=== PATIENT | female | born 1990 | race Caucasian/White ===

== ENCOUNTER → 2018-09-16 15:00 | Outpatient (CLI) | payer SELFPAY ==
[2015-12-19 07:31] VITALS: BMI 35.6
[2018-09-17 12:47] LABS: Chlamydia Trachomatis by PCR Negative (Negative); Neisserai gonorrhoeae by PCR Negative (Negative); Probe Check PASS; Sample Adequacy Control PASS; Specimen Processing Control PASS
[2018-09-19 13:15] LABS: HPV Reflexed? NOT INDICATED
--- OUTSIDE RECORDS SUMMARY | 2018-12-19 12:39 | XMS RPT_ITS ---
:1990 Author Organization OHIP Care Team Providers Name Role Phone TAYLOR DOTY Admitting Unavailable TAYLOR DOTY Attending Unavailable TAYLOR DOTY Primary Care Unavailable Taylor Doty Attending Unavailable PROBLEMS PROBLEMS DATE TYPE CONDITION / CODE ATTENDING STATUS SOURCE 09/17/2018 Unknown Z12.4 - Encounter Taylor Doty for screening for Community malignant neoplasm Hospital of cervix / Repository Z12.4(ICD-10) 09/17/2018 Unknown Z11.3 - Encounter Taylor Doty for screening for Community infections with a Hospital predominantly Repository sexual mode of transmission / Z11.3(ICD-10) PROCEDURES PROCEDURES No Procedure Records FoundRESULTS RESULTS CBC Collected: 09/16/2018 Status: F Source: JULIETAELIANE WHITMANJOY 7:11 PM [facility] REPOSITORY TYPE CODE TESTS RESULT OUT OF RANGE REFERENCE UNITS LAB CBC(LOINC) CBC Result Comment: CBC-COMPLETE BLOOD COUNT LAB WBC(LOINC) 4.5 - 10.8 x 10EE3/UL WBC 8.6 LAB RBC(LOINC) 4.10 - x 10EE6/UL 5.30 RBC Low 4.05 LAB HEMOGLOBIN(LOINC) 12.0 - g/dl 16.0 HEMOGLOBIN 12.2 LAB HEMATOCRIT(LOINC) 34.0 - % 46.0 HEMATOCRIT 35.5 LAB MCV(LOINC) 80 - 99 fl MCV 88 LAB MCH(LOINC) 27 - 33 pg MCH 30 LAB MCHC(LOINC) 32 - 36 X10 3 MCHC 34 LAB RDW/CV(LOINC) 12.0 - % 15.6 RDW/CV 14.3 LAB PLATELET(LOINC) 150 - 450 x10EE3/UL PLATELET 255 LAB MPV(LOINC) 6.6 - 10.5 fl MPV 9.8 Result Comment: AUTOMATED DIFFERENTIAL LAB NEUT %(LOINC) 46.0 - 76.0 % NEUT % 69.1 LAB LYMPH %(LOINC) 20.0 - 45.0 % LYMPH % 23.4 LAB MONOS %(LOINC) 0.0 - 10.0 % MONOS % 6.1 LAB EO %(LOINC) 0.0 - 7.0 % EO % 0.9 LAB BASO %(LOINC) 0.0 - 2.0 % BASO % 0.5 LAB Lymph #(LOINC) 0.80 - 2.80 x10EE3/U L Lymph # 2.00 LAB Neut #(LOINC) 1.50 - 7.10 x10EE3/U L Neut # 5.90 LAB [place] #(LOINC) 0.20 - 1.00 x10EE3/U L [place] # 0.50 LAB EO #(LOINC) 0.00 - 0.50 x10EE3/U L EO # 0.10 LAB Baso #(LOINC) 0.00 - 0.10 x10EE3/U L Baso # 0.00 LAB MANUAL DIFF(LOINC) MANUAL DIFF N/A LAB MORPHOLOGY(LOINC ) MORPHOLOGY N/A Result Comment: {CD] Performed By: #### [id number] #### [place] [id number] BB TYPE & SCREEN Collected: 09/16/2018 Status: F Source: [facility] 7:11 PM [facility] REPOSITORY TYPE CODE TESTS RESULT OUT OF REFERENCE UNITS RANGE LAB BB TYPE & SCREEN(LOIN C) BB TYPE & SCREEN Result Comment: TYPE, Rh, AND SCREEN LAB ABO(LOINC) ABO A LAB Rh(LOINC) Rh NEG LAB ANTIBODY SCR(INC) ANTIBODY negative SCR Performed By: #### [id number] #### [place] [id number] TSH Collected: 09/16/2018 Status: F Source: [facility] 7:11 [facility] REPOSITORY TYPE CODE TESTS RESULT OUT OF RANGE REFERENCE UNITS LAB TSH(LOINC) 0.34 - 5.60 uIU/ml High TSH 5.97 Performed By: #### [id number] #### [facility],[address] [place] [address] HEPATITIS C AB IA Collected: 09/16/2018 Status: F Source: JULIETA BETANCOURT W/CONFIRM [CCL] 7:11 PM [facility] REPOSITORY TYPE CODE TESTS RESULT OUT OF REFERENCE UNITS RANGE LAB HEPATITIS C AB IA W/CONFIRM [CCL](LOINC) HEPATITIS C AB IA W/CONFIRM [CCL] Result Comment: _HEPATITIS C AB IA W/CONFIRM [CCL]_ REFER TO SCANNED REPORT LAB REFLEX HCQPCR?(LOINC) REFLEX HCQPCR? NO Performed By: #### [id number] #### [place] [id number] POMERENE 3 [CCL] Collected: 09/16/2018 Status: F Source: JULIETA BETANCOURT 7:11 PM [facility] REPOSITORY TYPE CODE TESTS RESULT OUT OF REFERENCE UNITS RANGE LAB POMERENE 3 [CCL](LOINC) POMERENE 3 [CCL] Result Comment: _POMERENE 3 [CCL]_ REFER TO SCANNED REPORT Performed By: #### [id number] #### [address] [address] CT/NG [facility] BY PCR Collected: 09/16/2018 Status: F Source: [facility] 3:00 PM REPOSITORY TYPE CODE TESTS RESULT OUT OF RANGE REFERENCE UNITS LAB L8200.2100 Negative Normal Chlam Negative Trac PCR LAB L8200.2200 Negative Normal NG by Negative PCR Performed By: #### L8200.2000 #### [facility] [address] [place], [place], [address] PAP IG W/REFLEX HR Collected: 09/16/2018 Status: F Source: [facility] HPV APTIMA 3:00 PM REPOSITORY Order Comment: CYTOLOGY INFORMATION: - CLINICAL INFORMATION: - DATE LMP/MENOPAUSE: 06/13/18 LMP - COLLECTION VIAL: Thin Prep Vial - DIGITAL SALES ASSISTANT SOURCE: CERVICAL/ENDOCERVICAL - COLLECTION TECHNIQUE: BRUSH/SPATULA Specimen Comment: [id number] Specimen Comment: Source.............Cervix Specimen Comment: LMP / Prev Treat...[id number]=[id number] Specimen Comment: Other.............. Specimen Comment: No. of containers..01 ThinPrep Vial TYPE CODE TESTS RESULT OUT OF RANGE REFERENCE UNITS LAB L7400.0800 . Normal DIAGN Comment Result Comment: NEGATIVE FOR INTRAEPITHELIAL LESION AND MALIGNANCY. LAB L7400.0900 . Normal ADEQ Comment Result Comment: Satisfactory for evaluation. Endocervical and/or squamous metaplastic cells (endocervical component) are present. LAB L7400.1400 . Normal PERFORM Comment Result Comment: Mona Gonzalez, Tile Grinder (ASCP) LAB L7400.2575 . Normal TEST METHOD Comment Result Comment: This liquid based ThinPrep(R) pap test was screened with the use of an image guided system. LAB L7400.2600 . Normal . COMM LAB L7400.2700 . Normal PAPSMR Comment Result Comment: The Pap smear is a screening test designed to aid in the detection of premalignant and malignant conditions of the uterine cervix. It is not a diagnostic procedure and should not be used as the sole means of detecting cervical cancer. Both false-positive and false-negative reports do occur. LAB L7400.2800 . Normal HPV RFLX Comment Result Comment: The HPV DNA reflex criteria were not met with this specimen result therefore, no HPV testing was performed. Performed at: [address] [id number] Electrical Linesworker: Keeley Gonzalez MD, Phone: [phone] Performed By: #### L7400.0357 #### [facility] (refer to report for specific site) refer to report for address and phone number URINALYSIS Collected: 01/27/2018 Status: F Source: JULIETA BETANCOURT 4:30 PM [facility] REPOSITORY TYPE CODE TESTS RESULT OUT OF REFERENCE UNITS RANGE LAB URINALYSIS (LOINC) URINALYSIS Result Comment: URINALYSIS LAB Specimen Type(LOINC) Specimen UNSPECIFIED Type LAB Color(LOINC) NORMAL: YELLOW Color p.yel LAB Clarity(LOINC) NORMAL: CLEAR Clarity CLEAR LAB ph(LOINC) NORMAL: 5.0-8.0 ph 6 LAB Protein(LOINC) NORMAL: NEGATIVE Protein NEG LAB Glucose(LOINC) NORMAL: NORMAL Glucose NORM LAB Ketone(LOINC) NORMAL: NEGATIVE Ketone NEG LAB Bilirubin(LOINC) NORMAL: NEGATIVE Bilirubin NEG LAB Blood(LOINC) NORMAL: NEGATIVE Blood NEG LAB Urobilinog(LOINC) NORMAL: NORMAL Urobilinog NORM LAB Sp [place](LOINC) NORMAL: 1.010-1.030 Sp [place] 1.010 LAB Nitrite(LOINC) NORMAL: NEGATIVE Nitrite NEG LAB Leukocytes(LOINC) NORMAL: NEGATIVE Leukocytes NEG LAB Microscopic(LOINC ) Microscopic NOT INDICATED Performed By: #### [id number] #### [facility],[address] [place] [address] ALLERGIES ALLERGIES DATE TYPE / CODE NAME / CODE REACTION SEVERITY SOURCE 01/24/2014 Drug No Known Unknown [facility] Allergy/4160 Allergies/F00 [facility] 23759(SNOMED [id number](RXNOR Repository CT) M) ENCOUNTERS ENCOUNTERS ADMIT/DISCHARGE ACCOUNT ADMITTING ENCOUNTER LOCATION SOURCE NUMBER CLASS 09/16/2018/ [id number] TAYLOR DOTY Ambulatory [facility] Repository 09/16/2018 [id number] Ambulatory [address] ing:LABSPEC Repository PAYERS PAYERS ENCOUNTER GUARANTOR PAYER SUBSCRIBER SOURCE 09/16/2018 [id number] Insurance:SELF PAY [address] Number: Effective Repository [id number]: 330) Date:2018-09-16 [phone] ()
== END ==
PROVIDERS: Visit Provider Obstetrics & Gynecology
DX: Z12.4 Encounter for screening for malignant neoplasm of cervix (principal); Z11.3 Encounter for screening for infections with a predominantly sexual mode of transmission
CPT/HCPCS: 87491; 87591; 87624; 88175; G0145

== ENCOUNTER → 2019-02-24 | Outpatient (CLI) | payer SELFPAY | END | disposition home or self-care (01) | LOC: LABSPEC 02-25 09:20 | PROVIDERS: Visit Provider Obstetrics & Gynecology | DX: Z36.85 Encounter for antenatal screening for Streptococcus B (principal) | CPT/HCPCS: 87077; 87081; 87186 ==

== ENCOUNTER 2019-03-26 06:50 | Inpatient (IN) | payer SELFPAY ==
[2015-12-19 07:31] VITALS: BMI 35.6
[2019-03-26] VITALS (18 sets, daily range): BP systolic 98–125; BP diastolic 45–75; PULSE 62–106; RESP 14–114; TEMP 36.1–36.6; O2SAT 96–100; BMI 35.6
[2019-03-26] MEDS: Lactated Ringers 1,000 ML 50 ML IV ×2 (07:30→10:16)
[2019-03-26] MEDS: Oxytocin 30 units/NS 500 ml 30 UNITS/500 ML IV.SOLN IV (07:45)
[2019-03-26 07:51] LABS: Absolute Lymphocyte Count 1.73 X10^3/ul (0.83-4.51); Absolute Neutrophil Count 6.4 X10^3/uL (2.0-7.7); Basophil# 0.02 X10^3/uL; Basophil% 0.2 % (0-1); Eosinophil# 0.05 X10^3/uL; Eosinophils% 0.6 % (0-5); Hematocrit 33.6 % (37-47); Lymphocyte # 1.73 X10^3/ul (4.0); Lymphocyte % 19.8 % (19-41); Mean Corp Hgb Conc 32.7 g/gl (32-36); Mean Corpuscular Hgb 28.6 pg (27.0-32.0); Mean Corpuscular Volume 87.5 fL (81-99); Mean Platelet Vol. 10.6 fl (6.2-12.0); Monocyte# 0.48 X10^3/uL; Monocyte% 5.5 % (0-10); Neutrophil # 6.42 X10^3/uL (2.7-7.7); Neutrophil % 73.7 % (47-70); Platelet Count 265 K/mm3 (150-450); RBC Distribution Width CV 13.9 % (11.6-14.6); RBC Distribution Width SD 44.4 fl (35.1-43.9); Red Blood Count 3.84 M/mm3 (4.2-5.4); White Blood Count 8.7 K/mm3 (4.4-11.0)
[2019-03-26 07:52] LABS: POSITIVE COUNT NO; POSITIVE DIFFERENTIAL NO; POSITIVE MORPHOLOGY NO
--- NOTE | 2019-03-26 09:25 | HP.PCM_ITS ---
History and Physical Date of Admission: 03/26/19 History of this : 28 yo female Ab0 with EDC 03/20/2019 by 13 weeks 4 days Ultrasound, presents to Labor and Delivery. care remarkable for - Marginal previa (1.1 cm from os) at 19 wk u/s; repeat to confirm resolved about 32 weeks ges tation, Declines AFP screen, Rh negative, Hypothyroidism. Pertinent Past Medical History: non-smoker Allergies: NKA Medications: During - Synthroid 100 mcg tablet; Synthroid 112 mcg tablet; Synthroid 112 mcg tablet; [place] 3-6-9 1,200 mg capsule; 28 mg iron-800 mcg tablet; Synthroid 150 mcg tablet Review of Systems: Non-contributory PHYSICAL EXAMINATION General Appearence: 28 yo female in no acute distress Vital Signs: AF, VSS Heart: RRR without rubs or gallops Lungs: CTA x 2 Breasts: deferred Abdomen: gravid Pelvis: Cervix: 4-5/80 intact; AROM clear Presentation: cephalic Station: Fetus: Size: AGA Movement: present Heart: present Impression /Plan: Intrauterine . Preperations in progress for delivery. Expect . Plan Pitocin and AROM.
[2019-03-26] MEDS: fentaNYL-bupivacaine (epidural) 100 ML BAG EPIDURAL (10:40)
[2019-03-26] MEDS: Lactated Ringers 1,000 ML 999 ML IV (12:12)
[2019-03-26] MEDS: Oxytocin 30 units/NS 500 ml 30 UNITS/500 ML IV.SOLN 167 UNITS IV (12:20)
--- NOTE | 2019-03-26 13:08 | OP.PCM_ITS ---
Delivery Classification: Stat Final INEZ: 03/20/19 Final INEZ Source: US <20 weeks Gestational age: 40 Weeks and 6 Days doctor who attended delivery (if requested by OB): Amy Samuel - Increasing Stress Indications: Abruptio Placentae Indications for : Nonreassuring Status Description of Procedure: Surgeon: Dez Leija MD, FACOG Rubber Calender Helper: VIKASH Burroughs Anesthesia: Talon Billingsley CRNA Anesthesia: Spinal with Duramorph Pre-op Diagnosis: Increasing Stress Post-Op Diagnosis: Increasing Stress, Placental Abruption, Tight Nuchal Cord Procedure: Primary Low Transverse Cervical Caesarean Section Findings: Viable female with Apgars of 8/9 in occiput anterior presentation with clear amniotic fluid and normal three-vessel placenta. Cord around the neck tight x1 and approximately a 20% placental abruption. Indication: This is a 28-year-old presented for induction at 40 and 6 weeks gestation. care has otherwise been uneventful. Patient progressed to approximately 5 cm 85% effaced and -2 station and after epidural placement decelerations were noted and intermittently persisted. This was despite positional changes, stopping Pitocin and giving fluid boluses. Since there was no prospect of delivery soon it was decided to proceed with primary section. The patient has been counseled regarding the risk and indications of this procedure including the possibility of bleeding infection and injury to surrounding structures such as bowel bladder. All questions were answered. Procedure: Patient was taken to the operating room where after epidural anesthesia was redosed, the patient was prepped and draped in usual sterile fashion; a Warren catheter had been previously placed. The abdomen was entered through the a Pfannenstiel incision and peritoneum was entered bluntly. After developing a bladder flap on the lower uterine segment a low transverse incision was made on the uterus and head was easily delivered onto the operative field the nose mouth and oropharynx were bulb suctioned. Subsequently a viable female infant was born with Apgars of 8/9. The was noted to cry move all extremities vigorously on the operative field. The umbilical cord was doubly clamped and ligated and infant handed to the nursery personnel who were present for the delivery. Placenta was delivered and noted to be 3 vessels and normal except for approximately 20% abruption noted. Cord was also around the neck x1 tight. Uterus was exteriorized and remaining placental tissue was removed. The uterus was then closed in 2 layers first with running locked 0 Vicryl suture followed by a second imbricating layer with 0 Vicryl suture. 0 Vicryl suture was then used in a horizontal mattress interrupted fashion to affect final hemostasis of the uterine incision line. Normal fallopian tubes and ovaries were visualized and the uterus was returned to the pelvis. Hemostasis was noted and rectus abdominis muscles were reapproximated in the midline with interrupted Number 0 Vicryl suture in a horizontal mattress fashion. Fascia was closed with running Number 1 PDS Strata fix suture. Subcutaneous tissue was irrigated with copious amounts of saline solution and then closed with running 3-0 Vicryl suture. Skin was closed with 4-0 monocryl suture in a running subcuticular fashion. Steri strips, telfa, and tape were placed across the incision. The patient tolerated the procedure well and was taken to the recovery room in satisfactory condition. Sponge, needle, and instrument counts were all reportedly correct. EBL was <500 cc. Ancef 2 gms IV was given prior to the procedure. Spicemen to Pathology: Placenta Complications: None Amniotic Membrane Rupture Type: Artificial Amniotic Fluid Description: Clear Placenta Disposition: Sent to Pathology Specimen(s) sent to pathology: Placenta Drain: Warren to straight drain Cord Entanglement: Around neck x 2, tight Cord Vessel Description: 3 Vessels Esitmated Blood Loss (ml): 500 cc Gender: Female (1 minute): 8 (5 minute): 9 Pre-op Antibiotic Given: Ancef 2 grams IV x1 Complications: None - Admit VTE Documentation VTE Pharm Prophylaxis ordered?: Yes
--- NOTE | 2019-03-26 13:35 | PLAC_PTH ---
PATIENT: VASILE BARAKAT LOC: WP U#:[id number] AGE/SX: 28/F ROOM: WP007 RE03/26/[address]: Dr. Dez Leija MD : 1990 BED: 1 DIS: 03/28/2019 SPEC #: [id number] RECD: 03/26/19 22:23 STATUS: LOTUS MARIA EUGENIA #: [id number] GIANNA: 03/26/19 13:[address]: Dez Leija DEPT: SURGICAL PATHOLOGY RECD BY: Freddy Celeste Tissues: Placenta, NOS Procedures: Surgery Specimen Level V HEADER OPERATION: Primary section PRE-OP DIAGNOSIS: decels; abruptio placenta TISSUE SUBMITTED: Placenta MICROSCOPIC DIAGNOSIS Placenta: Placental disc - third trimester placenta (461 gm). - Focal areas of intraparenchymal hemorrhage. - Focal area of infarction (0.5 cm in greatest dimension). - Villous congestion and hemorrhage. - Focal chronic villitis of unknown etiology. Membranes - focal minimal acute inflammation. Umbilical cord - three blood vessels and focal minimal acute inflammation. SJ:anjana 03/31/19 MICROSCOPIC DESCRIPTION Slides are reviewed. GROSS DESCRIPTION SPECIMEN: PLACENTA / CLINICAL INFORMATION: A. Weight: 3.483 kg B. Gestational Age: 40 weeks C. Sex: Female PLACENTAL WEIGHT (POST FIXATION): 461 gm PLACENTAL DIMENSIONS: 17 x 18 x 3 cm PLACENTAL SHAPE: Usual ovoid PLACENTAL WEIGHT FOR GESTATIONAL AGE: Within 10-99th percentile MEMBRANES - Present A. Insertion: Marginal B. Site of rupture from edge: At edge of placental disc. C. Color of membrane: Harris-mckeon D. Abnormalities: None UMBILICAL CORD - Present A. Color: Harris-mckeon B. Insertion: Paracentral C. Length: 25 cm D. Diameter: 1.2 cm E. Number of vessels: Three F. Abnormalities: None PLACENTAL DISC - Present A. Color of surface: Harris-mckeon B. surface abnormalities: None C. Maternal cotyledons: Intact with minimal tears D. Attached retro placental clot: No clot E. Cut surface: Dark red and spongy F. Lesions: Sections reveal three harris, indurated areas, two smaller ones measuring 0.3 cm in greatest dimension and the larger one measuring 0.5 cm in greatest dimension. G. Separate clot: Absent SECTIONS SUBMITTED: 1. Membrane roll 2. Cord, maternal end 3. Cord, end 4. Placental disc, and maternal surfaces, smaller lesion 5. Placental disc, and maternal surfaces, smaller lesion 6. Placental disc, and maternal surfaces, largest lesion SJ:anjana 03/30/19 TC:5 CPT: 28378
[2019-03-26] MEDS: Cefazolin 2 GM in 0.9% Normal Saline 100 ML IV (13:44)
[2019-03-26] MEDS: Ketorolac 15 MG/ML Vial 30 MG IV ×2 (13:45→20:04)
[2019-03-26] MEDS: Lactated Ringers 1,000 ML 100 ML IV ×2 (14:32→22:14)
[2019-03-26] MEDS: Enoxaparin 30 MG/0.3 ML Syringe SC (18:46)
[2019-03-26] MEDS: proMETHazine 25 MG/ML Syringe 12.5 MG IV (22:14)
[2019-03-26] MEDS: Cefazolin 1 GM/50 ML BAG IV (22:14)
[2019-03-26 22:30] LABS: Pathology Specimen OB SEE PATHOLOGY REPORT
[2019-03-27] VITALS (9 sets, daily range): BP systolic 102–123; BP diastolic 43–92; PULSE 67–98; RESP 16–20; TEMP 36.1–37.3; O2SAT 97–100
[2019-03-27] MEDS: Ketorolac 15 MG/ML Vial 30 MG IV ×4 (02:10→20:50)
[2019-03-27] MEDS: Levothyroxine 150 MCG Tablet PO (06:10)
[2019-03-27] MEDS: Cefazolin 1 GM/50 ML BAG IV (06:11)
[2019-03-27 06:32] LABS: Hematocrit 24.7 % (37-47); Hemoglobin 8.2 g/dl (12.0-15.0); Mean Corp Hgb Conc 33.2 g/gl (32-36); Mean Corpuscular Hgb 29.3 pg (27.0-32.0); Mean Corpuscular Volume 88.2 fL (81-99); Mean Platelet Vol. 10.1 fl (6.2-12.0); Platelet Count 189 K/mm3 (150-450); RBC Distribution Width SD 45.3 fl (35.1-43.9); White Blood Count 10.4 K/mm3 (4.4-11.0)
[2019-03-27 06:38] LABS: Scan Indicated on CBC? Y/N NO
[2019-03-27] MEDS: Senna/Docusate Sodium 1 Tablet PO (08:38)
[2019-03-27] MEDS: 0.9% Saline Lock 10 ML Syringe IV ×3 (08:38→20:51)
--- NOTE | 2019-03-27 09:23 | PN.OBGYN_ITS ---
Subjective: Patient without complaints. Tolerating diet well. Positive flatus. Breast- feeding going well. Denies orthostatic changes. - Physical Exam Vital Signs Temp Pulse Resp BP Pulse Ox 98.2 F 81 20 H 107/48 L 97 03/27/19 04:00 03/27/19 06:12 03/27/19 06:12 03/27/19 04:00 03/27/19 06:12 Oxygen Delivery Method Room Air Weight: 221 lb Body Mass Index (BMI) 35.6 Intake and Output for Last 24 Hours 03/25/19 03/26/19 03/27/19 23:59 23:59 23:59 Intake Total 2019 1455 / 1455 Output Total 575 / 575 1400 / 1400 Balance 1445 / 1445 55 / 55 Laboratory Tests Past 24 Hrs 03/26/19 03/26/19 03/26/19 07:30 10:11 10:12 WBC RBC Hgb Hct MCV MCH MCHC RDW RDW Differential Plt Count MPV Blood Type A NEGATIVE Antibody Screen POSITIVE H Antibody Identification ANTI-M Antigen Identification K ANTIGEN - NEGATIVE M ANTIGEN - NEGATIVE Screen Baby's Blood Type Baby's GARY Crossmatch See Detail 03/26/19 03/27/19 14:50 06:25 WBC 10.4 RBC 2.80 L Hgb 8.2 L Hct 24.7 L MCV 88.2 MCH 29.3 MCHC 33.2 RDW 14.0 RDW Differential 45.3 H Plt Count 189 MPV 10.1 Blood Type Antibody Screen Antibody Identification Antigen Identification Screen NEGATIVE Baby's Blood Type A POSITIVE Baby's GARY NEGATIVE Crossmatch Wound is clean, dry, intact. Good urine output. Hemoglobin okay. Medical Necessity - Tobacco Use Smoking Status: Never smoker Assessment/Plan Doing well postoperative day #1 status post emergency for placental abruption and increasing stress. Anemia likely due to blood loss during surgery and bleeding from placental abruption; now with minimal bleeding. Continuing present care.
[2019-03-27] MEDS: DiphenhydrAMINE 25 MG Capsule PO (09:52)
[2019-03-28 02:00] VITALS: BP 120/62; PULSE 81; RESP 16; TEMP 36.6; O2SAT 96
[2019-03-28] MEDS: Ketorolac 15 MG/ML Vial 30 MG IV ×2 (02:04→08:27)
[2019-03-28] MEDS: 0.9% Saline Lock 10 ML Syringe IV ×2 (02:05→08:28)
[2019-03-28] MEDS: Levothyroxine 150 MCG Tablet PO (05:53)
[2019-03-28] MEDS: Senna/Docusate Sodium 1 Tablet PO (08:46)
[2019-03-28 10:00] VITALS: BP 109/58; PULSE 84; RESP 16; TEMP 36.8
--- NOTE | 2019-03-28 10:07 | PCM.PN.OB ---
Objective: Patient without complaints. Tolerating diet well. Positive flatus. Ready to go home today. - Physical Exam Vital Signs Temp Pulse Resp BP Pulse Ox 97.9 F 81 16 120/62 96 03/28/19 02:00 03/28/19 02:00 03/28/19 02:00 03/28/19 02:00 03/28/19 02:00 Oxygen Delivery Method Room Air Weight: 221 lb Body Mass Index (BMI) 35.6 Intake and Output for Last 24 Hours 03/26/19 03/27/19 03/28/19 23:59 23:59 23:59 Intake Total 2019 1455 / 1455 Output Total 575 / 575 4000 / 4000 Balance 1445 / 1445 -2545 / -2545 Wound is clean, dry, intact. Good urine output. Medical Necessity - Tobacco Use Smoking Status: Never smoker Assessment/Plan Doing well postoperative day #2 status post emergency section for abruption and increasing stress. Will release to home with routine instructions.
--- NOTE | 2019-03-28 10:08 | DCINST_ITS ---
Discharge Diet: No Restrictions Discharge Activity: May not drive while taking narcotic pain medications., May Shower, May Take a Tub Bath May resume sexual activity in: 4-6 weeks Lifting Restrictions: 20 pounds Additional Activity Instructions:: Nothing in the vagina for 4-6 weeks. You may return to work/school in 6 weeks. Call your doctor if your incision/area has: Continuous Slow Oozing, Sudden Increased Bleeding, Increased Pain/ Swelling, Increased Redness, Foul Smelling Discharge Call your doctor if you observe: Fever of 101 or Higher, Inability to urinate, Inability to have a bowel movement, Using more than one pad per hour Additional Instructions: If you experience any of the following, contact your healthcare provider. * Bleeding that soaks a pad every hour for 2 hours * Fever 100.4 or higher * Unrelieved incision or abdominal pain * Swelling, redness, discharge or bleeding from your incision or episiotomy site * Your incision begins to separate * Problems urinating (including inability to urinate or burning while urinating). * Visual changes * Severe headache * Flu-like symptoms * Pain or redness in one of both of your breasts * Pain, warmth, tenderness or swelling in your legs, especially the calf area * Frequent nausea and vomiting * Symptoms of depression or anxiety If you experience any of the following, call 911 or go to the nearest Emergency Room. * Chest pain * Problems breathing * Seizure activity * Partial or complete paralysis of a body part, slurred speech, weakness or drooping of the face, or a sudden inability to walk or hold your balance Allergies/Adverse Reactions: Allergies No Known Allergies Allergy (Verified 03/26/19 07:39) Medications to take at Discharge Levothyroxine [Synthroid] 150 mcg PO DAILY 10/21/13 Vits [Prenatabs FA ] 1 tablet PO DAILY 10/21/13 Docusate Sodium [Colace] 100 mg PO BID PRN PRN #60 cap 03/26/19 Oxycodone [Oxyir] 5 mg PO Q6H PRN PRN 7 Days #20 tab 03/26/19 The following prescriptions were given: Docusate Sodium [Colace] 100 mg PO BID PRN PRN #60 cap PRN Reason: Constipation Prescription Printed Oxycodone [Oxyir] 5 mg PO Q6H PRN PRN 7 Days #20 tab PRN Reason: Severe Pain (6-07/09) Prescription Printed Follow-Up: Call to make an appointment with your doctor for an incision check in 1-2 weeks. You will also need a 6 week post- follow up appointment. Test results from this visit will be discussed in further detail at your follow- up appointment, if applicable. Please Follow Up With: Dez Leija MD - [phone] When: Call to make an appointment for an incision check in 2 weeks.
[2019-03-28] MEDS: Ibuprofen 600 MG Tablet PO (13:30)
--- NOTE | 2019-03-28 15:53 | NURSING ---
1350 Discharged to home with . Pt states she wants to go home today and feels good. She stated she feels like she can take care of herself and her baby. Leaves unit in wheel chair with in lap in car seat.
== END 2019-03-28 13:50 | disposition home or self-care (01) | DRG 788 ==
PROVIDERS: Admitting Provider Obstetrics & Gynecology; Referring Provider Obstetrics & Gynecology; Visit Provider Obstetrics & Gynecology
DX: O45.93 Premature separation of placenta, unspecified, third trimester (principal); Z3A.40 40 weeks gestation of pregnancy; Z37.0 Single live birth; O69.1XX0 Labor and delivery complicated by cord around neck, with compression, not applicable or unspecified; O99.284 Endocrine, nutritional and metabolic diseases complicating childbirth; E03.9 Hypothyroidism, unspecified
CPT/HCPCS: 59025; 59050; 85025; 85027; 85461; 86850; 86870; 86900; 86902; 86905; 86920; 86921; 86922; 88307; 90384; 99218; J7120; A4216; G0378; J2405; J2790

== ENCOUNTER → 2023-09-17 | Outpatient (CLI) | payer OTHER, SELFPAY ==
[2023-09-20 15:08] LABS: HPV APTIMA, High Risk Negative (Negative)
== END | disposition home or self-care (01) ==
PROVIDERS: Visit Provider Registered Nurse
DX: Z12.4 Encounter for screening for malignant neoplasm of cervix (principal)
CPT/HCPCS: 87624; 88175; G0145

== ENCOUNTER → 2024-05-07 | Outpatient (CLI) | payer OTHER, SELFPAY ==
[2024-05-12 11:59] LABS: Chlamydia By Nucleic Acid AMP Negative (Negative); Gonococcus By Nucleic Acid AMP Negative (Negative)
== END | disposition home or self-care (01) ==
LOC: LABSPEC 14:41
PROVIDERS: PCP Nurse Practitioner Family; Referring Provider Advanced Practice Midwife; Visit Provider Advanced Practice Midwife
DX: O09.899 Supervision of other high risk pregnancies, unspecified trimester (principal); E66.9 Obesity, unspecified; Z28.39 Other underimmunization status; Z3A.00 Weeks of gestation of pregnancy not specified; O09.90 Supervision of high risk pregnancy, unspecified, unspecified trimester; O99.210 Obesity complicating pregnancy, unspecified trimester
CPT/HCPCS: 87086; 87088; 87491; 87591

== ENCOUNTER → 2024-06-10 | Outpatient (CLI) | payer SELFPAY ==
[2024-06-10 12:32] LABS: Absolute Lymphocyte Count 1.97 X10^3/uL (0.83-4.51); Absolute Neutrophil Count 5.7 X10^3/uL (2.0-7.7); Basophil# 0.04 X10^3/uL; Basophil% 0.5 % (0-1); Eosinophil# 0.05 X10^3/uL; Eosinophils% 0.6 % (0-5); Hematocrit 33.8 % (37-47); Hemoglobin 11.3 g/dL (12.0-15.0); Lymphocyte # 1.97 X10^3/ul (0.83-4.51); Lymphocyte % 24.1 % (19-41); Mean Corp Hgb Conc 33.4 g/dL (32-36); Mean Corpuscular Hgb 29.6 pg (27.0-32.0); Mean Corpuscular Volume 88.5 fL (81-99); Mean Platelet Vol. 10.6 fl (6.2-12.0); Monocyte# 0.36 X10^3/uL; Monocyte% 4.4 % (0-10); NRBC Flagged by Analyzer 0 % (0-5); Neutrophil # 5.72 X10^3/uL (2.7-7.7); Neutrophil % 70.2 % (47-70); Platelet Count 254 K/mm3 (150-450); RBC Distribution Width CV 13.7 % (11.6-14.6); RBC Distribution Width SD 44.8 fl (35.1-43.9); Red Blood Count 3.82 M/mm3 (4.2-5.4); White Blood Count 8.2 K/mm3 (4.4-11.0)
[2024-06-10 13:36] LABS: HIV - WCH Non-Reactive (Nonreactive); Hepatitis B Surface Antigen Non-Reactive (Nonreactive); Hepatitis C Antibody Non-Reactive (Nonreactive); Rubella IgG Reactive (Nonreactive); Syphilis Antibodies Non-reactive
[2024-06-10 13:51] LABS: Hemoglobin A1c 5.4 % (3.8-5.6)
[2024-06-11 06:11] LABS: V-Zoster IgG (Immunity) < 135 index (Immune >165)
== END | disposition home or self-care (01) ==
PROVIDERS: PCP Nurse Practitioner Family; Referring Provider Advanced Practice Midwife; Visit Provider Advanced Practice Midwife
DX: O09.899 Supervision of other high risk pregnancies, unspecified trimester (principal); O99.210 Obesity complicating pregnancy, unspecified trimester; Z3A.00 Weeks of gestation of pregnancy not specified; Z28.39 Other underimmunization status
CPT/HCPCS: 36415; 83036; 85025; 86703; 86762; 86780; 86787; 86803; 86850; 86870; 86900; 86901; 87340

== ENCOUNTER → 2024-06-11 | Outpatient (CLI) | payer SELFPAY | END | disposition home or self-care (01) | LOC: LAB 10:42 | PROVIDERS: PCP Nurse Practitioner Family; Referring Provider Advanced Practice Midwife; Visit Provider Advanced Practice Midwife | DX: O36.1990 Maternal care for other isoimmunization, unspecified trimester, not applicable or unspecified (principal); O26.899 Other specified pregnancy related conditions, unspecified trimester; Z67.91 Unspecified blood type, Rh negative; Z3A.00 Weeks of gestation of pregnancy not specified | CPT/HCPCS: 36415 ==

== ENCOUNTER → 2024-08-26 | Outpatient (CLI) | payer SELFPAY ==
[2024-08-26 11:11] LABS: Absolute Lymphocyte Count 1.29 X10^3/uL (0.83-4.51); Absolute Neutrophil Count 7.1 X10^3/uL (2.0-7.7); Basophil# 0.03 X10^3/uL; Basophil% 0.3 % (0-1); Eosinophil# 0.06 X10^3/uL; Eosinophils% 0.7 % (0-5); Hematocrit 31.3 % (37-47); Hemoglobin 10.3 g/dL (12.0-15.0); Lymphocyte # 1.29 X10^3/ul (0.83-4.51); Lymphocyte % 14.4 % (19-41); Mean Corp Hgb Conc 32.9 g/dL (32-36); Mean Corpuscular Hgb 29.7 pg (27.0-32.0); Mean Corpuscular Volume 90.2 fL (81-99); Mean Platelet Vol. 10.6 fl (6.2-12.0); Monocyte# 0.43 X10^3/uL; Monocyte% 4.8 % (0-10); NRBC Flagged by Analyzer 0 % (0-5); Neutrophil # 7.09 X10^3/uL (2.7-7.7); Neutrophil % 79.4 % (47-70); Platelet Count 277 K/mm3 (150-450); RBC Distribution Width CV 13.2 % (11.6-14.6); RBC Distribution Width SD 43.6 fl (35.1-43.9); Red Blood Count 3.47 M/mm3 (4.2-5.4); White Blood Count 8.9 K/mm3 (4.4-11.0)
[2024-08-26 11:46] LABS: Glucose Challenge Gest 1H 50g 109 mg/dL (70-140)
[2024-08-26 11:48] LABS: HIV - WCH Non-Reactive (Nonreactive); Syphilis Antibodies Non-reactive
== END | disposition home or self-care (01) ==
PROVIDERS: Obstetrics & Gynecology; PCP Nurse Practitioner Family; Referring Provider Obstetrics & Gynecology; Visit Provider Obstetrics & Gynecology
DX: O36.1990 Maternal care for other isoimmunization, unspecified trimester, not applicable or unspecified (principal); Z13.1 Encounter for screening for diabetes mellitus; Z3A.00 Weeks of gestation of pregnancy not specified
CPT/HCPCS: 36415; 82950; 85025; 86703; 86780; 86850; 86870; 86900; 86901

== ENCOUNTER → 2024-10-21 | Outpatient (CLI) | payer SELFPAY ==
[2024-10-21 11:32] LABS: Absolute Neutrophil Count 6.8 X10^3/uL (2.0-7.7); Basophil# 0.04 X10^3/uL; Basophil% 0.5 % (0-1); Eosinophil# 0.06 X10^3/uL; Eosinophils% 0.7 % (0-5); Hematocrit 31.4 % (37-47); Lymphocyte % 16.9 % (19-41); Mean Corp Hgb Conc 31.8 g/dL (32-36); Mean Corpuscular Hgb 28.5 pg (27.0-32.0); Mean Corpuscular Volume 89.5 fL (81-99); Mean Platelet Vol. 10.6 fl (6.2-12.0); Monocyte# 0.48 X10^3/uL; Monocyte% 5.4 % (0-10); NRBC Flagged by Analyzer 0 % (0-5); Neutrophil # 6.75 X10^3/uL (2.7-7.7); Platelet Count 292 K/mm3 (150-450); RBC Distribution Width CV 13.9 % (11.6-14.6); RBC Distribution Width SD 45.4 fl (35.1-43.9); Red Blood Count 3.51 M/mm3 (4.2-5.4); White Blood Count 8.9 K/mm3 (4.4-11.0)
== END | disposition home or self-care (01) ==
PROVIDERS: Registered Nurse; PCP Nurse Practitioner Family; Referring Provider Nurse Practitioner Women's Health; Visit Provider Nurse Practitioner Women's Health
DX: O36.1920 Maternal care for other isoimmunization, second trimester, not applicable or unspecified (principal); O09.92 Supervision of high risk pregnancy, unspecified, second trimester; Z3A.00 Weeks of gestation of pregnancy not specified; O99.019 Anemia complicating pregnancy, unspecified trimester
CPT/HCPCS: 36415; 85025

== ENCOUNTER → 2024-10-28 | Outpatient (CLI) | payer SELFPAY | END | disposition home or self-care (01) | LOC: LABSPEC 16:05 | PROVIDERS: PCP Nurse Practitioner Family; Referring Provider Obstetrics & Gynecology; Visit Provider Obstetrics & Gynecology | DX: O09.93 Supervision of high risk pregnancy, unspecified, third trimester (principal); Z3A.00 Weeks of gestation of pregnancy not specified | CPT/HCPCS: 87077; 87081; 87186 ==

== ENCOUNTER 2024-11-09 10:19 | Inpatient (IN) | payer SELFPAY ==
[2024-11-09] VITALS (17 sets, daily range): BP systolic 91–129; BP diastolic 47–108; PULSE 69–105; RESP 14–20; TEMP 36.2–36.7; O2SAT 97–100; BMI 36.6
[2024-11-09] MEDS: Lactated Ringers 1,000 ML 999 ML IV (10:50)
[2024-11-09] MEDS: Acetaminophen 500 MG Tablet 1000 MG PO ×3 (11:03→23:50)
--- NOTE | 2024-11-09 11:13 | HP.PCM.OB_ITS ---
HPI - General General Date of Admission: 11/09/24 HPI Narrative VASILE BARAKAT, is a 33 y/o @ 38 weeks 0 days who presents to L&D for repeat section due to prior section and low lying placenta. [facility] recommended delivery via repeat section by 37-38 weeks to avoid bleeding. Maternal Data Information INEZ Calculator Estimated Delivery Date Method Current WG Current Estimate 11/23/24 Ultrasound #1 38w 0d Other Estimates 11/26/24 LMP (Certain) 37w 4d PFSH PFSH Medical History (Updated 11/09/24 @ 10:51 by Yaquelin Ortiz) Hypothyroidism Home Medications ?Medication ?Instructions ?Recorded ?Last Taken ?Type calcium citrate 400 mg PO DAILY supplement 0 04/28/24 11/08/24 History magnesium 200 mg tablet 350 mg PO DAILY supplement 0 04/28/24 11/08/24 History vitamins no.163-iron tab PO 4 11/08/24 History bis-gly 20 mg-folate no.10 1 mg tablet (PNV Tabs 20-1) levothyroxine 50 mcg tablet 175 mcg PO DAILY hypothyro idism 07/30/24 Unknown History amoxicillin 875 mg-potassium 1 tab PO Q12H ear infecti on and 11/02/24 11/09/24 Rx clavulanate 125 mg tablet tonsilitis #14 tabs calcium & magnesium with vitmain d See Rx Instructions PO DAILY 11/09/24 11/08/24 History and zinc supplement Allergy/AdvReac Type Severity Reaction Status Date / Time No Known Allergies Allergy Verified 11/09/24 10:51 Family History Sister Rheumatoid arthritis Surgical History (Updated 11/09/24 @ 10:51 by Yaquelin Ortiz) S/P knee surgery S/P section Social History adopted: No household members: family housing: house number of children: 3 current occupational status: unemployed current occupation: [employer] current occupational exposures/hazards: No pets and animals: No history of recent travel: No sexually active: Yes Smoking Status: Never smoker alcohol intake: never substance use type: does not use well-balanced diet: daily or most days caffeine: Yes Type: coffee Number of servings: 2 eating out: 1-3 times/week during the past year weight has: remained stable what type of physical activity do you participate in: none katie/restoration: Confucianism seatbelt use: always do you feel safe at home: Yes additional social history: - Mike- [employer] History 4 Elective abortions Hx Para 3 Spontaneous abortions Hx # Term Pregnancies Ectopic pregnancies Hx # Pregnancies Multiple births # of living children 3 Past Pregnancies Del. Date Name GA/Weeks Outcome Route Bth Weight Infant Gen Labor Lgth Anesthesia Del Locatn Provider FOB 01/25/14 Ruby 41 live - full term 8#2.5oz Female epi dural Dr.Weem mauri Mckeon 12/19/15 Price 40 live - full term 8#11oz Male epid ural [facility] Dr.Weeman Mckeon 03/26/19 Zari 41 live - full term 8#4oz Female epidural [facility] Dr. Heladio Mckeon Delivery Date: 03/26/19 Last Updated by: Jeannine Agustin IOL, decels, c section Visit Details Expected Delivery Route/Plan Labor Preferences- CB/BF classes: no labor support person: Mike labor intervention preferences: [] pain management options preferred: epidural cut cord/dad catch: cord : yes PP control planned: discussed discussed possible routes of delivery and associated risks: [] special requests: [] Plans Covid status: [] Flu vaccine: declines Tdap vaccine: declines Rhogam: 08/26/24 LARC form signed: yes Problem list reviewed and updated with the most current plan of care details and appropriate orders placed. Relevant counseling for the gestational age provided. Continue routine care and follow up unless otherwise noted in visit notes/problem list details OB Flowsheet Initial Weight: Not Recorded Date -?-?-?-?-?-?-?-?-?-?-?-?- EGA Weight BP Urine Prot -?-?-?-?-?-?-?-?-?-?-?-?- Glucose FHR FuHt Pres Dilation -?-?-?-?-?-?-?-?-?-?-?-?- Effaced St Visit Note 05/07/24 -?-?-?-?-?-?-?-?-?-?-?-?- 11w 3d 209 lb 8 oz 124/76 -?-?-?-?-?-?-?-?-?-?-?-?- 168 -?-?-?-?-?-?-?-?-?-?-?-?- KW- CRL cons wit h dates. 43 mm. considering NIPT 06/10/24 -?-?-?-?-?-?-?-?-?-?-?-?- 16w 2d 216 lb 8 oz 119/72 Nega tive -?-?-?-?-?-?-?-?-?-?-?-?- Negative 145 -?-?-?-?-?-?-?-?-?-?-?-?- SM- no vb crampi ng SM- no vb cramping nob labs today declined genetic screening 06/30/24 -?-?-?-?-?-?-?-?-?-?-?-?- 19w 1d 216 lb 118/76 Negative -?-?-?-?-?-?-?-?-?-?-?-?- Negative 140 -?-?-?-?-?-?-?-?-?-?-?-?- JV- no lof, vagi nal bleeding, or cramping. getting mfm anatomy scan tomorrow and consultation for anti-m antibody. wants to tolac if possible. 07/30/24 -?-?-?-?-?-?-?-?-?-?-?-?- 23w 3d 221 lb 106/67 Negative -?-?-?-?-?-?-?-?-?-?-?-?- Negative 150 24 -?-?-?-?-?-?-?-?-?-?-?-?- SM- no vb crampi ng SM- no vb cramping discussed previa diagnosis and implications if doesn't resolved, will continue to follow 08/26/24 -?-?-?-?-?-?-?-?-?-?-?-?- 27w 2d 225 lb 4 oz 116/68 Nega tive -?-?-?-?-?-?-?-?-?-?-?-?- Negative 145 27 -?-?-?-?-?-?-?-?-?-?-?-?- MH-No Vb, LOF. G ood FM. 28 labs drawn prior to appt along with M titer. Rhogam given. Larc. Declines tdap 09/09/24 -?-?-?-?-?-?-?-?-?-?-?-?- 29w 2d 225 lb 2 oz 111/70 Nega tive -?-?-?-?-?-?-?-?-?-?-?-?- Negative 145 28 -?-?-?-?-?-?-?-?-?--?-?-?- JV- previa resol joão! anti-m antibody was too weak to titer. rpt next month.declines tdap. going to [place] 09/18/24 -?-?-?-?-?-?-?-?-?-?-?-?- 30w 4d 225 lb 6 oz 117/78 Nega tive -?-?-?-?-?-?-?-?-?-?-?-?- Negative 135 29 -?-?-?-?-?-?-?-?-?-?-?-?- LC- no vb/ctx/lo f. good fm. traveling to [place], travel precautions provided. rpt cbc in 3 weeks, just started iron LC- no vb/ctx/lof. good fm. traveling to [place], travel precautions provided. rpt cbc in 3 weeks, just started iron. anti-m titers ordered 10/07/24 -?-?-?-?-?-?-?-?-?-?-?-?- 33w 2d 228 lb 4 oz 115/78 Nega tive -?-?-?-?-?-?-?-?-?-?-?-?- Negative 145 32 -?-?-?-?-?-?-?-?-?--?-?-?- KW- US reviewed with pt. would like repeat US at 37 weeks prior to R C/S at 38 weeks for low lying placenta. good fm. 10/21/24 -?-?-?-?-?-?-?-?-?-?-?-?- 35w 2d 233 lb 6 oz 120/78 Nega tive -?-?-?-?-?-?-?-?-?-?-?-?- Negative 142 34 -?-?-?-?-?-?-?-?-?-?-?-?- MH-No VB, lof. Good FM. Growth US 11/03. Labs today 10/28/24 -?-?-?-?-?-?-?-?-?-?-?-?- 36w 2d 228 lb 4 oz 111/76 -?-?-?-?-?-?-?-?-?-?-?-?- 152 36 -?-?-?-?-?-?-?-?-?-?-?-?- JV- no lof, vagi nal bleeding, or dec fm. still has low lying placenta. delivering at 38 weeks for this. growth scan scheduled 5 days prior to the surgery 11/05/24 -?-?-?-?-?-?-?-?-?-?-?-?- 37w 3d 227 lb 2 oz 115/79 Nega tive -?-?-?-?-?-?-?-?-?-?-?-?- Negative 150 37 -?-?-?-?-?-?-?-?-?-?-?-?- JV- preop consen t signed today. still has sinus ifx on abx. ROS Constitutional Constitutional: Denies change in weight, fatigue, fever(s), headache(s), poor appetite or weakness Eyes Eyes: Denies blurry vision, change in vision, seeing flashes or spots in vision ENT HEENT: Denies dizziness, headache(s), loss taste/smell or sore throat Cardiovascular Cardiovascular: Denies chest pain, dizziness, dyspnea, irregular heart rhythm, leg edema, palpitations, rapid heart rate or vomiting Respiratory/Chest Respiratory/Chest: Denies chest tightness, cough, dyspnea or breast pain Gastrointestinal Gastrointestinal: Denies abdominal pain, anorexia, constipation, cramping, diarrhea, hemorrhoids, vomiting or weight changes Genitourinary Genitourinary: Denies dysuria, flank pain, genital lesions, genital pain, urinary frequency or urinary urgency Musculoskeletal Musculoskeletal: Denies back pain, difficulty walking, joint pain, limited range of motion, muscle cramps or numbness Integumentary Integumentary: Denies lesions or unusual bruising Neurologic Neurologic: Denies abnormal movements, abnormal speech, dizziness, numbness, seizure-like activity or syncope Psychiatric Psychiatric: Denies anxiety, behavioral changes, change in appetite, change in libido, cognitive impairment, confusion, depression, difficulty concentrating, hallucinations or suicidal thoughts Endocrine Endocrinology: Denies excessive sweating, polydipsia or polyuria Hematologic/Lymphatic Hematologic/Lymphatic: Denies easy bleeding, easy bruising or lymphadenopathy Allergic/Immunologic Allergic/Immunologic: Denies itchy eyes, lip swelling, seasonal rhinorrhea, rhinitis, throat swelling, tongue swelling, eczemia, wheezing or asthma Vital Signs Vital Signs Vital Signs: 11/09/24 11:03 11/09/24 11:03 11/09/24 11:04 Temperature Temperature Source Temporal Pulse Rate 85 Respiratory Rate Blood Pressure 121/56 H BP Systolic 121 BP Diastolic 56 Pulse Ox 11/09/24 11:04 11/09/24 11:04 11/09/24 11:04 Temperature 97.5 F L Temperature Source Pulse Rate Respiratory Rate 17 Blood Pressure BP Systolic BP Diastolic Pulse Ox 97 Weight Weight: 227 lb 2 oz Body Mass Index (BMI) 36.6 Physical Exam Const alert, oriented x3, no apparent distress and healthy appearing General Appearance: cooperative; Negative for anxious HEENT normocephalic Face and Sinus: normal facial exam Eyes EOMs intact bilaterally and no scleral icterus General Eye: normal appearance of both eyes Neck full ROM and supple Lymph Lymphatic: no lymphadenopathy noted Chest Chest: abnormal inspection of the chest Resp normal respiratory effort Effort and Inspection: able to speak in complete sentences Cardio regular rate GI soft to palpation and non-tender Inspection: gravid Palpation: soft; Negative for tender Back/Spine no CVA tenderness Extremity normal to inspection, full ROM and no clubbing, cyanosis or edema General Extremity: Negative for calf tenderness or edema Skin Lesions: no lesions Rashes: no rashes Psych mental status grossly normal Labs Labs Labs: Blood Type A NEGATIVE Antibody Screen POSITIVE Hct 31.9 % (37-47) L Hgb 10.2 g/dL (12.0-15.0) L Syphilis Total Ab Non-reactive VZV IgG Antibody < 135 index (Immune >165) L Rubella IgG Antibody Reactive (Nonreactive) Hep Bs Antigen Non-Reactive (Nonreactive) Hepatitis C Antibody Non-Reactive (Nonreactive) Chlamydia DNA (ALTA) Negative (Negative) N.gonorrhoeae DNA (ALTA) Negative (Negative) HIV 1&2 Antibody Non-Reactive (Nonreactive) Glucose 1 Hr 50 gm 109 mg/dL (70-140) Group B Strep DNA POSITIVE (Negative) H Rhogam given: Yes Miscellaneous Test COMMENT (.) Assessment & Plan (1) Positive GBS test: (2) Low lying placenta, antepartum: COMMENT: .5cm from os at 32 wk. Pelvic rest. Rpt US 36wk; CS scheduled JV 11/09 at noon (3) Anemia affecting : QUALIFIERS: Trimester: third trimester Qualified Code(s): O99.013 - Anemia complicating , third trimester COMMENT: OTC Iron daily (4) Thyroid disease affecting : COMMENT: thyroid testing q trimester, done by gluing machine offbearer Dr Espinoza in [facility]. (5) abnormality affecting management of mother: QUALIFIERS: Fetus number: single or unspecified fetus Qualified Code(s): O35.9XX0 - Maternal care for (suspected) abnormality and damage, unspecified, not applicable or unspecified COMMENT: CVI noted. will reassess on rescan at 28 weeks (6) Maternal atypical antibody complicating : QUALIFIERS: Fetus number: single or unspecified fetus Trimester: second trimester Qualified Code(s): O36.1920 - Maternal care for other isoimmunization, second trimester, not applicable or unspecified COMMENT: antibody M noted on NOB labs- titers ordered 06/15- discussed with JV-repeat in q4 (stable at 2) weeks and address with MFM anatomy US- continue to monitor q 4 weeks and notify MFM if 8+. 08/06 stable at 2. 08/26:too low to titer. 10/21:1. (7) Rh negative status during : QUALIFIERS: Trimester: second trimester Qualified Code(s): O26.892 - Other specified related conditions, second trimester; Z67.91 - Unspecified blood type, Rh negative COMMENT: rhogam at 28 weeks and PRN; Given at 27w 2d. (8) AMA (advanced maternal age) multigravida 35+: QUALIFIERS: Trimester: second trimester Qualified Code(s): O09.522 - Supervision of elderly multigravida, second trimester COMMENT: genetic counseling provided. recommend growth US 36 weeks and delivery by 39. (9) Obesity affecting : QUALIFIERS: Trimester: second trimester Obesity type affecting : unspecified obesity Qualified Code(s): O99.212 - Obesity complicating , second trimester COMMENT: [id number]. encouraged healthy weight gain. BMI 34 (10) Susceptible to varicella (non-immune), currently : COMMENT: non immune (11) Patient desires vaginal after section (): COMMENT: 2 previous , cs due to decels. plan TOLAC (12) Previous section: COMMENT: 3rd , IOL with decel (13) Supervision of high-risk : QUALIFIERS: Trimester: third trimester Qualified Code(s): O09.93 - Supervision of high risk , unspecified, third trimester COMMENT: PRR , INEZ 11/26/24, PC Price Beltran Lorraine, Mike (14) : QUALIFIERS: Weeks of gestation: 37 weeks Qualified Code(s): Z3A.37 - 37 weeks gestation of COMMENT: nl anatomy, discussed genetic & carrier testing-declined. PLAN: Plan After discussing the patient's diagnosis and treatment plan options, patient wishes to proceed with surgical management. I have discussed with the patient the risks, benefits, and alternatives of the procedure which include but are not limited to risks of anesthesia, bleeding, infection, possible damage to bowel, bladder, or surrounding vasculature which could lead to additional surgery to evaluate any complications. Patient agrees to procedure and wishes to proceed. ACOG/uptodate references given for additional information regarding procedure. plan repeat 38 weeks per patient request. mfm recommeded 37-38 weeks 6 days to avoid bleeding or other complications from low lying placenta
[2024-11-09 11:17] LABS: Absolute Lymphocyte Count 1.41 X10^3/uL (0.83-4.51); Absolute Neutrophil Count 5.9 X10^3/uL (2.0-7.7); Basophil# 0.03 X10^3/uL; Basophil% 0.4 % (0-1); Eosinophil# 0.02 X10^3/uL; Eosinophils% 0.3 % (0-5); Hematocrit 31.9 % (37-47); Hemoglobin 10.2 g/dL (12.0-15.0); Lymphocyte # 1.41 X10^3/ul (0.83-4.51); Lymphocyte % 18.2 % (19-41); Mean Corpuscular Hgb 28.8 pg (27.0-32.0); Mean Corpuscular Volume 90.1 fL (81-99); Mean Platelet Vol. 10.7 fl (6.2-12.0); Monocyte# 0.34 X10^3/uL; Monocyte% 4.4 % (0-10); NRBC Flagged by Analyzer 0 % (0-5); Neutrophil # 5.92 X10^3/uL (2.7-7.7); Neutrophil % 76.2 % (47-70); Platelet Count 289 K/mm3 (150-450); RBC Distribution Width CV 13.9 % (11.6-14.6); RBC Distribution Width SD 45.8 fl (35.1-43.9); Red Blood Count 3.54 M/mm3 (4.2-5.4); White Blood Count 7.8 K/mm3 (4.4-11.0)
--- NOTE | 2024-11-09 11:22 | DCINST_ITS ---
Discharge Instructions Diet Discharge Diet: No restrictions DC O2, CPAP, BIPAP needs Home O2 Discharge instructions: No Dressing / Incision Discharge Activity: May Not Drive (for 2 weeks or while taking narcotic pain medications.), May Shower and May Take a Tub Bath (in 7 days.) May resume sexual activity in: 4-6 weeks Weight Bearing Status: Full weight bearing Lifting Restrictions: 20 pounds Dressing / Incision Call your doctor if your incision/area has: Continuous Slow Oozing, Sudden Increased Bleeding, Increased Pain/ Swelling, Increased Redness and Foul Smelling Discharge Call your doctor if you observe: Fever of 101 or Higher and Using more than 1 pad per hour Suture Line Care: Avoid Pulling/Pushing and Avoid Pinching/Bending Cleanse incision/area with: Soap & Water and Keep Dressing Clean & Dry Follow Up Care Please Follow Up With: Kaylee Dsouza DO When: Call [phone] to make an appointment for an incision check in 1-2 weeks. Test Results: Test results from this visit will be discussed in further detail at your follow- up appointment, if applicable. Discharge Plan Admission Admit Date/Time: 11/09/24 10:19 Primary Reason for Your Visit: Attending Provider: Kaylee Dsouza Primary Care Provider: Janeth Marks NP Discharge Orders/Prescriptions Prescriptions: New ibuprofen 800 mg tablet 800 mg PO Q8H PRN (Reason: pain) Qty: 30 0RF oxycodone-acetaminophen [Percocet] 5-325 mg tablet 1 tab PO Q4H PRN (Reason: pain) 7 Days Qty: 20 0RF Rx Instructions: 1-2 tabs q 4 hrs as needed for pain Continued PNV Tabs 20-1 20 mg iron- 1 mg tablet PO calcium citrate 200 mg (950 mg) tablet 400 mg PO DAILY magnesium 200 mg tablet 350 mg PO DAILY amoxicillin-pot clavulanate 875-125 mg tablet 1 tab PO Q12H Qty: 14 0RF levothyroxine 50 mcg tablet 175 mcg PO DAILY Patient Comments: takes one daily and 2 on Sundays calcium & magnesium with vitmain d and zinc See Rx Instructions PO DAILY Rx Instructions: SOFTGEL orally daily; Referrals / Follow Up: Janeth Marks NP, [facility] [Primary Care Provider] - Disposition Disposition (needs filled in before D/C Order can be placed): Home, Self Care
[2024-11-09] MEDS: Sodium Citrate/Citric Acid 30 ML UDC PO (11:45)
[2024-11-09] MEDS: Lactated Ringers 1,000 ML 150 ML IV (11:52)
[2024-11-09] MEDS: Cefazolin 2 GM in 0.9% Normal Saline (100mL Bag) 100 ML IV (12:12)
[2024-11-09 12:14] LABS: Syphilis Antibodies Non-reactive
[2024-11-09] MEDS: Methylergonovine 0.2 MG/ML Ampul IM (12:27)
--- NOTE | 2024-11-09 12:47 | OP.PCM_ITS ---
Assessment & Plan (1) Positive GBS test: (2) Low lying placenta, antepartum: COMMENT: .5cm from os at 32 wk. Pelvic rest. Rpt US 36wk; CS scheduled JV 11/09 at noon (3) Anemia affecting : QUALIFIERS: Trimester: third trimester Qualified Code(s): O99.013 - Anemia complicating , third trimester COMMENT: OTC Iron daily (4) Thyroid disease affecting : COMMENT: thyroid testing q trimester, done by rn operating room Dr Espinoza in [place]. (5) abnormality affecting management of mother: QUALIFIERS: Fetus number: single or unspecified fetus Qualified Code(s): O35.9XX0 - Maternal care for (suspected) abnormality and damage, unspecified, not applicable or unspecified COMMENT: CVI noted. will reassess on rescan at 28 weeks (6) Maternal atypical antibody complicating : QUALIFIERS: Fetus number: single or unspecified fetus Trimester: second trimester Qualified Code(s): O36.1920 - Maternal care for other isoimmunization, second trimester, not applicable or unspecified COMMENT: antibody M noted on NOB labs- titers ordered 06/15- discussed with JV-repeat in q4 (stable at 2) weeks and address with MFM anatomy US- continue to monitor q 4 weeks and notify MFM if 8+. 08/06 stable at 2. 08/26:too low to titer. 10/21:1. (7) Rh negative status during : QUALIFIERS: Trimester: second trimester Qualified Code(s): O26.892 - Other specified related conditions, second trimester; Z67.91 - Unspecified blood type, Rh negative COMMENT: rhogam at 28 weeks and PRN; Given at 27w 2d. (8) AMA (advanced maternal age) multigravida 35+: QUALIFIERS: Trimester: second trimester Qualified Code(s): O09.522 - Supervision of elderly multigravida, second trimester COMMENT: genetic counseling provided. recommend growth US 36 weeks and delivery by 39. (9) Obesity affecting : QUALIFIERS: Obesity type affecting : unspecified obesity Trimester: second trimester Qualified Code(s): O99.212 - Obesity complicating p regnancy, second trimester COMMENT: [id number]. encouraged healthy weight gain. BMI 34 (10) Susceptible to varicella (non-immune), currently : COMMENT: non immune (11) Previous section: COMMENT: 3rd , IOL with decel (12) Supervision of high-risk : QUALIFIERS: Trimester: third trimester Qualified Code(s): O09.93 - Supervision of high risk , unspecified, third trimester COMMENT: PRR , INEZ 11/26/24, PC Price Beltran Lorraine, Mike (13) : QUALIFIERS: Weeks of gestation: 37 weeks Qualified Code(s): Z3A.37 - 37 weeks gestation of COMMENT: nl anatomy, discussed genetic & carrier testing-declined. Maternal Data Information INEZ Calculator Estimated Delivery Date Method Current WG Current Estimate 11/23/24 Ultrasound #1 38w 0d Other Estimates 11/26/24 LMP (Certain) 37w 4d Final INEZ: 11/23/24 Final INEZ Source: US <20 weeks Operative Report (OB) Cecarean Details Procedure Type: low transverse Date of Procedure: 11/09/24 Procedure Start Time: 12:17 Procedure Stop Time: 12:58 Time of Delivery: 12:22 Pre-Operative Diagnosis: Repeat Elective and Other (LOW LYING PLACENTA ) Other Pre-Operative diagnosis: intrapartum hemorrhage Post-Operative Diagnosis: Same as Pre-operative diagnosis Classification: Scheduled Type of Anesthesia: Spinal Antibiotic Given: Ancef 2 grams IV x1 Drain: Warren to straight drain Estimated Blood Loss: 1300CC Findings Description of surgery: Procedure: The patient was brought to the operating room where spinal anesthesia was found to be adequate. She was prepped and draped in the normal sterile fashion and was placed in a dorsal supine position with a leftward tilt. Pfannenstiel skin incision was made with a scalpel and carried through to the underlying layers. The fascia was nicked in the midline and extended laterally using Correa scissors. The anterior aspect of the fascia was grasped with Thomas clamps and the underlying rectus muscles dissected off using the Metzenbaum scissors. The inferior aspect the fascia was also grasped with Thomas clamps and the underlying rectus muscle dissected off with the Metzenbaum scissors. The rectus muscles were in the midline. Peritoneum was entered sharply. The uterus was identified and a bladder blade was inserted into the abdomen. Bladder flap was created off the uterus using Metzenbaum scissors. A transverse incision was made with a scalpel and extended laterally manually. The infant's head was grasped with the help of my clinical education assistant and fundal pressure the infant was delivered through the uterine incision without difficulty. The mouth and nares were bulb suctioned. After a 30 second delay the cord was clamped and cut. The was handed off to the awaiting executive vp for routine assessment. Placenta was delivered manually without difficulty. The uterus was exteriorized and cleared of all clots and debris. However, there was noted to be bleeding at the placental bed at the cervicouterine junction. A thick yellow/brown material that looked to be old membranes was found to be adherent to this site and removed with a ringed forcepts. It did not peel off however as membranes would normally peel off and was sent to pathology for analysis. 1-0 vicrul sutures were placed at the placental bed and this slowed the bleeding. Methergine and pitocin was given as well. Incision was closed with an 0 Vicryl suture in a running locked fashion. Second layer of 1-0 monocryl suture was used in imbricating manner to create excellent closure and hemostasis. The uterus was returned to the abdomen. The gutters were cleared of all clots and debris. The peritoneum was closed in a pursestring pattern using a 3-0 Vicryl suture. This muscle was reapproximated with a 3-0 Vicryl. The fascia was closed with an 0 PDS stratafix suture. Subcutaneous tissue layer was closed using a plain gut suture. The skin was closed with a 4-0 Monocryl subcuticular stitch. The skin was also sealed with surgical glue. The patient tolerated the procedure well sponge lap and needle counts were correct at each tissue closure plane and the patient is now being brought to the recovery room in stable condition Surgical findings: viable female infant, bleeding at placental bed at the cervicouterine junction. Presentation: Vertex Amniotic Membrane Rupture Type: Artificial Amniotic Fluid Description: Clear Placental Delivery Description: Manual Removal Placenta Disposition: Sent to Pathology (tissue from uterus ) Specimen collected: Yes Description of specimen(s) removed: placenta Cord Vessel Description: 3 Vessels Cord Entanglement: Around neck x 1, loose Nuchal Cord Compression: Without compression A gender: Female (1 minute): 8 (5 minute): 9 Delayed Cord Clamping: Yes Senior Training Specialist claims administrator: Yes Military Pilot: Chuy Carmichael Tasks completed by international first officer: Closing and Retracting Additional clinical education assistant?: No Complications Complications: No Procedures Urinary/Genital [id number]: [id number] Delivery [facility]
[2024-11-09] MEDS: Oxytocin 15 Units/NS 250ml 15 UNITS/250 ML IV.SOLN 83 UNITS IV (13:10)
--- NOTE | 2024-11-09 13:27 | NURSING ---
Pre-operative antibiotic cefazolin given by anesthesia in OR.
[2024-11-09] MEDS: Ketorolac 30 MG/ML Syringe IV ×2 (13:30→19:48)
--- NOTE | 2024-11-09 13:36 | UTER_PTH ---
PATIENT: VASILE BARAKAT LOC: [facility] U#:[id number] AGE/SX: 33/F ROOM: [facility] RE11/09/[address]: Dr. Kaylee Dsouza DO : 1990 BED: 1 DIS: 11/11/2024 SPEC #: [id number] RECD: 11/09/24 13:56 STATUS: LOTUS MARIA EUGENIA #: [id number] GIANNA: 11/09/24 13:[address]: Kaylee Dsouza DEPT: SURGICAL PATHOLOGY RECD BY: Freddy Celeste ENTERED: 11/09/24 14:21 SP TYPE: UTERINE CO OTHR DR: Janeth Marks, GRADUATE RESEARCH ASSISTANT-Sharri Tissues: Uterine cervix, NOS Procedures: Surgery Specimen Level IV HEADER OPERATION: Repeat section PRE-OP DIAGNOSIS: Uterine biopsy TISSUE SUBMITTED: Uterine biopsy MICROSCOPIC DIAGNOSIS Uterine biopsy: Consistent with inflamed benign endometrial polyp with extensive decidual changes and infarction. See comment. SJ.mr 11/10/2024 COMMENT Clinical correlation and appropriate follow up are necessary. MICROSCOPIC DESCRIPTION Slides are reviewed. GROSS DESCRIPTION Received is one container labeled with the patient's name and not further designated. The specimen consists of a harris-pink polyp measuring 2.5 x 1.5 x 0.5cm. This specimen is bisected and submitted entirely in one cassette. 11/09/2024 TC:5 CPT:86728
[2024-11-09 13:56] LABS: Pathology Specimen OB SEE PATHOLOGY REPORT
[2024-11-09 15:00] LABS: Absolute Lymphocyte Count 1.27 X10^3/uL (0.83-4.51); Absolute Neutrophil Count 10.4 X10^3/uL (2.0-7.7); Basophil# 0.04 X10^3/uL; Basophil% 0.3 % (0-1); Eosinophil# 0.02 X10^3/uL; Eosinophils% 0.2 % (0-5); Hematocrit 30.2 % (37-47); Hemoglobin 9.7 g/dL (12.0-15.0); Lymphocyte # 1.27 X10^3/ul (0.83-4.51); Lymphocyte % 10.4 % (19-41); Mean Corp Hgb Conc 32.1 g/dL (32-36); Mean Corpuscular Hgb 28.8 pg (27.0-32.0); Mean Corpuscular Volume 89.6 fL (81-99); Mean Platelet Vol. 10.5 fl (6.2-12.0); Monocyte# 0.44 X10^3/uL; Monocyte% 3.6 % (0-10); NRBC Flagged by Analyzer 0 % (0-5); Neutrophil # 10.41 X10^3/uL (2.7-7.7); Platelet Count 261 K/mm3 (150-450); RBC Distribution Width CV 13.8 % (11.6-14.6); RBC Distribution Width SD 45.1 fl (35.1-43.9); Red Blood Count 3.37 M/mm3 (4.2-5.4); White Blood Count 12.2 K/mm3 (4.4-11.0)
[2024-11-09] MEDS: Lactated Ringers 1,000 ML 100 ML IV (16:09)
[2024-11-09] MEDS: Rho(D) Immune Globulin 300 MCG (1500 Unit) Syringe IV (17:08)
[2024-11-09] MEDS: 0.9% Saline Lock 10 ML Syringe IV (19:48)
[2024-11-10] VITALS (9 sets, daily range): BP systolic 108–130; BP diastolic 44–80; PULSE 73–86; RESP 14–18; TEMP 36.2–36.4; O2SAT 96–99
[2024-11-10] MEDS: 0.9% Saline Lock 10 ML Syringe IV (01:43)
[2024-11-10] MEDS: Ketorolac 30 MG/ML Syringe IV ×2 (01:43→08:57)
[2024-11-10] MEDS: Acetaminophen 500 MG Tablet 1000 MG PO ×4 (05:02→23:20)
[2024-11-10 05:13] LABS: Hematocrit 22.9 % (37-47); Hemoglobin 7.7 g/dL (12.0-15.0); Mean Corp Hgb Conc 33.6 g/dL (32-36); Mean Corpuscular Hgb 29.5 pg (27.0-32.0); Mean Corpuscular Volume 87.7 fL (81-99); Mean Platelet Vol. 9.8 fl (6.2-12.0); Platelet Count 217 K/mm3 (150-450); RBC Distribution Width CV 14.2 % (11.6-14.6); Red Blood Count 2.61 M/mm3 (4.2-5.4); White Blood Count 10.5 K/mm3 (4.4-11.0)
[2024-11-10] MEDS: Levothyroxine 175 MCG Tablet PO (06:57)
--- NOTE | 2024-11-10 07:48 | PN.OBGYN_ITS ---
Subjective Subjective Patient resting. Blood products infusing. States just feels week. Tolerating PO. Ambulating and voiding without difficulty. Feeding well. Denies chest pain, shortness of breath, calf pain/swelling, fevers, chills, lightheadedness. Objective Data Objective Data Vital Signs: Vital Signs Temp Pulse Resp BP Pulse Ox O2 Del Method 97.1 F L 77 14 117/58 L 97 Room Air 11/10/24 06:58 11/10/24 06:58 11/10/24 06:58 11/10/24 06:58 11/10/24 06:58 11/10/24 06:58 Oxygen Delivery Method Room Air Weight: 227 lb 2 oz Body Mass Index (BMI) 36.6 Intake & Output: Intake and Output for Last 24 Hours 11/08/24 11/09/24 11/10/24 23:59 23:59 23:59 Intake Total 2727.5 / 2727.5 158.33 / 158.33 Output Total 1500 / 1500 300 / 300 Balance 1227.5 / 1227.5 -141.67 / -141.67 Lab / Micro Data 11/10/24 05:05 Labs: Laboratory Results - last 24 hr 11/09/24 11:00: WBC 7.8, RBC 3.54 L, Hgb 10.2 L, Hct 31.9 L, MCV 90.1, MCH 28.8, MCHC 32.0, RDW Std Deviation 45.8 H, RDW Coeff of Elsy 13.9, Plt Count 289, MPV 10.7, Immature Gran % (Auto) 0.500, Neut % (Auto) 76.2 H, Lymph % (Auto) 18.2 L, [place] % (Auto) 4.4, Eos % (Auto) 0.3, Baso % (Auto) 0.4, Absolute Neuts (auto) 5.9, Absolute Lymphs (auto) 1.41, Nucleated RBC % 0, Blood Type A NEGATIVE, A ntibody Screen POSITIVE H, Antibody Identification ANTI-K 11/09/24 11:00: Antibody Identification ANTI-M, Antigen Identification E ANTIGEN - NEGATIVE, Crossmatch See Detail 11/09/24 11:15: Syphilis Total Ab Non-reactive 11/09/24 14:30: WBC 12.2 H, RBC 3.37 L, Hgb 9.7 L, Hct 30.2 L, MCV 89.6, MCH 28.8, MCHC 32.1, RDW Std Deviation 45.1 H, RDW Coeff of [place]sy 13.8, Plt Count 261, MPV 10.5, Immature Gran % (Auto) 0.500, Neut % (Auto) 85.0 H, Lymph % (Auto) 10.4 L, [place] % (Auto) 3.6, Eos % (Auto) 0.2, Baso % (Auto) 0.3, Absolute Neuts (auto) 10.4 H, Absolute Lymphs (auto) 1.27, Nucleated RBC % 0, Screen NEGATIVE, Baby's Blood Type O POSITIVE, Baby's GARY NEGATIVE 11/10/24 05:05: WBC 10.5, RBC 2.61 L, Hgb 7.7 L, Hct 22.9 L, MCV 87.7, MCH 29.5, MCHC 33.6, RDW Std Deviation 45.0 H, RDW Coeff of [place]sy 14.2, Plt Count 217, MPV 9.8 Physical Exam Const alert and oriented x3 HEENT normocephalic Eyes PERRL Neck full ROM Resp normal respiratory effort GI soft to palpation GI Narrative: FF below U. Dressing dry and intact Palpation: tender other (appropriately) Assessment & Plan (1) S/P section: COMMENT: 11/09/24 RLTCS JENNIFER Elizondo; (2) Low lying placenta, antepartum: COMMENT: .5cm from os at 32 wk. Pelvic rest. 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 08/06 stable at 2. 08/26:too low to titer. 10/21:1. (5) Rh negative status during : QUALIFIERS: Trimester: second trimester Qualified Code(s): O 26.892 - Other specified related conditions, second trimester; Z67.91 - Unspecified blood type, Rh negative COMMENT: rhogam at 28 weeks and PRN; Given at 27w 2d. (6) Susceptible to varicella (non-immune), currently : COMMENT: non immune PLAN: Plan s/p LTCS PPD # 1 1. routine post care 2. breast feeding- support given 3. rh positive 4. rubella immune 5. rpt CBC 4 hr post transfusion
[2024-11-10] MEDS: Senna/Docusate Sodium 1 Tablet PO (10:05)
[2024-11-10 13:06] LABS: Absolute Lymphocyte Count 1.07 X10^3/uL (0.83-4.51); Absolute Neutrophil Count 8.3 X10^3/uL (2.0-7.7); Basophil# 0.03 X10^3/uL; Basophil% 0.3 % (0-1); Eosinophil# 0.02 X10^3/uL; Eosinophils% 0.2 % (0-5); Hematocrit 26.8 % (37-47); Hemoglobin 8.8 g/dL (12.0-15.0); Lymphocyte # 1.07 X10^3/ul (0.83-4.51); Lymphocyte % 10.7 % (19-41); Mean Corp Hgb Conc 32.8 g/dL (32-36); Mean Corpuscular Hgb 29.5 pg (27.0-32.0); Mean Corpuscular Volume 89.9 fL (81-99); Mean Platelet Vol. 10.6 fl (6.2-12.0); NRBC Flagged by Analyzer 0 % (0-5); Neutrophil # 8.27 X10^3/uL (2.7-7.7); Neutrophil % 82.6 % (47-70); Platelet Count 237 K/mm3 (150-450); RBC Distribution Width CV 14.3 % (11.6-14.6); RBC Distribution Width SD 45.8 fl (35.1-43.9); Red Blood Count 2.98 M/mm3 (4.2-5.4)
[2024-11-10] MEDS: Ibuprofen 600 MG Tablet PO ×2 (15:13→21:38)
[2024-11-11 02:00] VITALS: BP 133/63; PULSE 86; RESP 17; TEMP 36.6; O2SAT 98
[2024-11-11] MEDS: Ibuprofen 600 MG Tablet PO ×2 (02:54→09:13)
[2024-11-11] MEDS: Acetaminophen 500 MG Tablet 1000 MG PO ×2 (05:50→11:21)
[2024-11-11] MEDS: Levothyroxine 175 MCG Tablet PO (05:50)
--- NOTE | 2024-11-11 07:54 | PCM.PN.OB ---
Subjective Subjective Patient doing well without complaints. States feeling much improved. Tolerating PO. Ambulating and voiding without difficulty. Feeding well. Denies chest pain, shortness of breath, calf pain/swelling, fevers, chills, lightheadedness. Objective Data Objective Data Vital Signs: Vital Signs Temp Pulse Resp BP Pulse Ox O2 Del Method 97.8 F 86 17 133/63 H 98 Room Air 11/11/24 02:00 11/11/24 02:00 11/11/24 02:00 11/11/24 02:00 11/11/24 02:00 11/11/24 02:00 Oxygen Delivery Method Room Air Weight: 227 lb 2 oz Body Mass Index (BMI) 36.6 Intake & Output: Intake and Output for Last 24 Hours 11/09/24 11/10/24 11/11/24 23:59 23:59 23:59 Intake Total 2727.5 / 2727.5 158.33 / 158.33 Output Total 1500 / 1500 1600 / 1600 Balance 1227.5 / 1227.5 -1441.67 / -1441.67 Lab / Micro Data 11/10/24 12:50 Labs: Laboratory Results - last 24 hr 11/10/24 12:50: WBC 10.0, RBC 2.98 L, Hgb 8.8 L, Hct 26.8 L, MCV 89.9, MCH 29.5, MCHC 32.8, RDW Std Deviation 45.8 H, RDW Coeff of Elsy 14.3, Plt Count 237, MPV 10.6, Immature Gran % (Auto) 0.200, Neut % (Auto) 82.6 H, Lymph % (Auto) 10.7 L, [place] % (Auto) 6.0, Eos % (Auto) 0.2, Baso % (Auto) 0.3, Absolute Neuts (auto) 8.3 H, Absolute Lymphs (auto) 1.07, Nucleated RBC % 0 Physical Exam Const alert and oriented x3 HEENT normocephalic Eyes PERRL Neck full ROM Resp normal respiratory effort GI soft to palpation GI Narrative: FF below U. Dressing dry and intact Palpation: tender other (appropriately) Assessment & Plan (1) S/P section: COMMENT: 11/09/24 IZZYTCScotty Elizondo; (2) Anemia: QUALIFIERS: Anemia type: iron deficiency Iron deficiency anemia type: chronic blood loss Qualified Code(s): D50.0 - Iron deficiency anemia secondary to blood loss (chronic) COMMENT: 1U transfused (3) Rh negative status during : QUALIFIERS: Trimester: second trimester Qualified Code(s): O26.892 - Other specified related conditions, second trimester; Z67.91 - Unspecified blood type, Rh negative COMMENT: rhogam at 28 weeks and PRN; Given at 27w 2d. PLAN: Plan s/p LTCS PPD # 2 1. routine post care 2. breast feeding- support given 3. rh negative 4. rubella immune 5. home today
[2024-11-11 08:00] VITALS: BP 125/57; PULSE 90; RESP 16; TEMP 36.3
[2024-11-11] MEDS: Senna/Docusate Sodium 1 Tablet PO (11:21)
== END 2024-11-11 12:20 | disposition home or self-care (01) | DRG 787 ==
PROVIDERS: Advanced Practice Midwife; Admitting Provider Obstetrics & Gynecology; PCP Nurse Practitioner Family; Referring Provider Obstetrics & Gynecology; Visit Provider Obstetrics & Gynecology
PROC: 10D00Z1 Extraction of Products of Conception, Low, Open Approach (ICD-10-PCS; CPT 59514; principal; 2024-11-09 11:45)
DX: O34.211 Maternal care for low transverse scar from previous cesarean delivery (principal); O44.43 Low lying placenta NOS or without hemorrhage, third trimester; D50.0 Iron deficiency anemia secondary to blood loss (chronic); E03.9 Hypothyroidism, unspecified; O99.214 Obesity complicating childbirth; O99.02 Anemia complicating childbirth; Z37.0 Single live birth; Z3A.38 38 weeks gestation of pregnancy; O69.2XX0 Labor and delivery complicated by other cord entanglement, with compression, not applicable or unspecified; O99.824 Streptococcus B carrier state complicating childbirth; Z67.91 Unspecified blood type, Rh negative; O99.284 Endocrine, nutritional and metabolic diseases complicating childbirth; O26.893 Other specified pregnancy related conditions, third trimester
CPT/HCPCS: 59025; 59050; 85025; 85027; 85461; 86780; 86850; 86870; 86900; 86901; 86902; 86905; 86920; 86922; 88305; 90384; P9016; A4216; J2405; J2790; J2791

== ENCOUNTER → 2024-12-23 | Outpatient (CLI) | payer SELFPAY ==
[2024-12-23 13:10] LABS: Thyroid Stim Hormone (TSH) 0.018 uIU/mL (0.300-4.200)
== END | disposition home or self-care (01) ==
LOC: BWCLAB 11:45
PROVIDERS: PCP Nurse Practitioner Family; Referring Provider Obstetrics & Gynecology; Visit Provider Obstetrics & Gynecology
DX: E03.9 Hypothyroidism, unspecified (principal); D50.0 Iron deficiency anemia secondary to blood loss (chronic); Z98.891 History of uterine scar from previous surgery
CPT/HCPCS: 36415; 84443